=== PATIENT | male | born 1990 | race Caucasian/White ===

== ENCOUNTER 2017-01-20 06:43 | Inpatient (IN) | payer MEDICAID ==
[~2017-01-20] VITALS: Ht 172.7 cm; Wt 71.7 kg
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
[2017-01-20] MEDS ORDERED: ONDANSETRON HCL 4 MG TABLET PO ONE (07:00)
[2017-01-20] MEDS ORDERED: IV NORMAL SALINE 1000 ML BAG IV ONE (07:00)
[2017-01-20] MEDS ORDERED: TDAP DIPH,PERTUSS,TET VAC/PF 0.5 ML DISP.SYRIN IM ONE ×2 (07:00→07:30)
[2017-01-20] MEDS ORDERED: HYDROMORPHONE 1 MG/1 ML DISP.SYRIN IM ONE (07:00)
[2017-01-20] MEDS ORDERED: CEFAZOLIN 1 G in IV DEXTROSE 5% 50 ML IV ONE (07:00)
[2017-01-20] MEDS ORDERED: ONDANSETRON IV *ER 4 MG/2 ML VIAL IV ONE (07:15)
[2017-01-20] MEDS ORDERED: HYDROMORPHONE 1 MG/1 ML DISP.SYRIN IV ONE (07:15)
[2017-01-20 07:21] LABS: BASOPHILS % (AUTO) 0.3 % (0.0-2.0); EOSINOPHILS # (AUTO) 0.2 K/uL (0.0-0.7); EOSINOPHILS % (AUTO) 2.8 % (0.0-7.0); HEMATOCRIT 48.3 % (40-50); HEMOGLOBIN 16.5 G/DL (14.0-18.0); LYMPHOCYTES # (AUTO) 2.4 K/UL (0.8-4.8); LYMPHOCYTES % (AUTO) 29.4 % (20.5-51.5); MEAN CORPUSCULAR HEMOGLOBIN 29.7 UUG (27.0-31.0); MEAN CORPUSCULAR HGB CONC 34 g/dL (32.0-37.0); MONOCYTES # (AUTO) 0.6 K/UL (0.1-1.30); MONOCYTES % (AUTO) 6.9 % (0.0-11.0); NEUTROPHILS # (AUTO) 4.9 K/UL (1.8-8.9); NEUTROPHILS % (AUTO) 60.6 % (38.5-71.5); PLATELET COUNT (AUTO) 245 K/UL (150-450); RED BLOOD CELL COUNT(AUTO) 5.54 MIL/UL (4.7-6.1); WHITE BLOOD COUNT (AUTO) 8.1 K/UL (4.0-11.2)
[2017-01-20] MEDS ORDERED: HYDROMORPHONE 2 MG/1 ML DISP.SYRIN ONE (07:24)
[2017-01-20] MEDS ORDERED: ONDANSETRON 4 MG/2 ML VIAL ONE (07:24)
[2017-01-20] MEDS ORDERED: CEFAZOLIN 1 G VIAL ONE (07:31)
--- NOTE | 2017-01-20 08:14 | NUR ---
lapd at bedside talking to pt
[2017-01-20 08:17] LABS: CREATININE 1.2 mg/dL (0.6-1.3); POTASSIUM 3.9 mmol/L (3.5-5.1)
[2017-01-20 08:22] LABS: BILIRUBIN,DIRECT 0.1 mg/dL (0.0-0.2); BILIRUBIN,TOTAL 0.5 mg/dL (0.1-1.0)
[2017-01-20 08:23] LABS: TOTAL PROTEIN, SERUM 7.5 g/dL (6.4-8.2)
--- NOTE | 2017-01-20 09:49 | NUR ---
chelsey bell for dr. bhardwaj for consult
--- NOTE | 2017-01-20 10:10 | NUR ---
dr. casas talked to dr. bhardwaj. called dr. toledo per request
--- NOTE | 2017-01-20 10:24 | NUR ---
dr. casas talking to dr. alexander
--- NOTE | 2017-01-20 10:28 | NUR ---
dr. casas talking to dr. toledo
--- NOTE | 2017-01-20 10:40 | NUR ---
camacho foley talking again to dr. radha greenfield
--- NOTE | 2017-01-20 10:46 | NUR ---
called dr. whitney. camacho foley talking to dr. whitney
--- NOTE | 2017-01-20 11:00 | NUR ---
received report from [facility] nurse, pt is laying in bed comfortably. No s/s of respiratory distress noted, all safety needs are met. iv intact/patent, will continue to monitor.
--- NOTE | 2017-01-20 11:07 | NUR ---
pt transfered to floor in stable condition
[2017-01-20 12:05] VITALS: BP 123/83
[2017-01-20] MEDS ORDERED: HYDROCODONE/APAP 5-325MG TABLET PO PRN (12:30)
[2017-01-20] MEDS ORDERED: ZOLPIDEM 5 MG TABLET PO PRN (12:30)
[2017-01-20] MEDS ORDERED: ACETAMINOPHEN 325 MG TABLET PO PRN (12:30)
[2017-01-20] MEDS ORDERED: Z GUARD REMEDY PASTE 57 GM TUBE TOP PRN (12:30)
[2017-01-20] MEDS ORDERED: VANCOMYCIN IV 1 G in PREMIXED 0 EACH IV SCH (12:30)
[2017-01-20] MEDS ORDERED: MAGNESIUM HYDROXIDE 30 ML LIQUID UDC PO PRN (12:30)
[2017-01-20] MEDS ORDERED: ONDANSETRON 4 MG/2 ML VIAL IV PRN (12:30)
--- NOTE | 2017-01-20 12:35 | NUR ---
dr. casas talking to dr. strange
--- NOTE | 2017-01-20 12:45 | NUR ---
[facility] to maximino at [facility].
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
[2017-01-20 12:58] LABS: AMYLASE 43 U/L (25-115); LIPASE 163 U/L (73-393)
[2017-01-20] MEDS: IV D5 1/2 NS 1000 ML 1,000 ML IV PRN (13:00)
--- NOTE | 2017-01-20 13:01 | NUR ---
called [facility], no bed available per sumit
[2017-01-20] MEDS: MORPHINE SULFATE 2 MG/1 ML DISP.SYRIN IV PRN ×3 (13:10→22:11)
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
[2017-01-20 14:30] VITALS: BP 120/78
[2017-01-20] MEDS: CEFAZOLIN 1 G in PREMIXED 1 EACH IV SCH ×2 (14:31→22:11)
[2017-01-20] MEDS: VANCOMYCIN IV 1 G in PREMIXED 0 EACH IV SCH (15:19)
[2017-01-20 17:31] LABS: *BILIRUBIN,URIN NEGATIVE (NEGATIVE); *BLOOD, URINE NEGATIVE (NEGATIVE); *COLOR,URINE YELLOW (YELLOW); *KETONES,URINE NEGATIVE (NEGATIVE); *PROTEIN,URINE NEGATIVE (NEGATIVE); LEUKOCYTE ESTERASE ,URINE NEGATIVE (NEGATIVE); NITRITE, URINE NEGATIVE (NEGATIVE); PH,URINE 7.5 (5.0-8.0); UGLUCOSE NEGATIVE (NEGATIVE)
[2017-01-20 17:49] LABS: *CLARITY,URINE CLEAR (CLEAR)
[2017-01-20 17:52] LABS: RBC,URINE NONE SEEN /HPF (0-3); WBC,URINE 0-3 /HPF (0-3)
[2017-01-20 17:53] LABS: BACTERIA,URINE NONE SEEN /HPF (NONE SEEN); SQUAMOUS EPITHELIAL CELL,UR NONE SEEN /HPF (NONE SEEN)
--- NOTE | 2017-01-20 17:53 | NUR ---
PER DR. MOCK OK TO HAVE REFGULAR DIET, NPO AFTER MIDNIGHT. "SURGERY WILL BE TOMORROW".
--- NOTE | 2017-01-20 19:26 | NUR ---
pt is laying in bed comfortably. no s/s of respiratory distress noted. all safety needs are met. no pain noted. iv intact/patent. wound care is done, no bleeding noted.
[2017-01-20 20:00] VITALS: BP 113/78
[2017-01-21 00:25] VITALS: BP 110/79
--- NOTE | 2017-01-21 00:52 | NUR ---
Received patient laying in bed. Complaint of pain 6/10 on left elbow dressing intact no active bleeding noted, given iv morphine prn as ordered. Maintained on ivf infusion as ordered. Planned for surgery today, instructed NPO after midnight. On telemetry monitoring SR, HR high 50's otherwise vital signs are stable. Call light within reach.
[2017-01-21] MEDS: VANCOMYCIN IV 1 G in PREMIXED 0 EACH IV SCH ×3 (01:06→21:05)
[2017-01-21 04:00] VITALS: BP 108/65
[2017-01-21] MEDS: CEFAZOLIN 1 G in PREMIXED 1 EACH IV SCH ×3 (05:47→22:32)
[2017-01-21] MEDS: IV D5 1/2 NS 1000 ML 1,000 ML IV PRN (05:48)
--- NOTE | 2017-01-21 05:58 | NUR ---
PATIENT SLEPT GOOD THROUGH THE NIGHT. NOTED MINIMAL BLEEDING ON LEFT ELBOW, REINFORCED DRESSING. OTHERWISE PATIENT COMPLAINT OF 4-5 PAIN. VSS. MAINTAINED ON NPO. CALL LIGHT WITHIN REACH. ALL NEEDS ATTENDED.
[2017-01-21] MEDS: PANTOPRAZOLE SODIUM 40 MG TABLET.DR PO SCH (06:00)
[2017-01-21 06:35] LABS: BASOPHILS % (AUTO) 0.2 % (0.0-2.0); EOSINOPHILS # (AUTO) 0.2 K/uL (0.0-0.7); EOSINOPHILS % (AUTO) 1.8 % (0.0-7.0); HEMOGLOBIN 16.8 G/DL (14.0-18.0); LYMPHOCYTES # (AUTO) 1.4 K/UL (0.8-4.8); LYMPHOCYTES % (AUTO) 12.7 % (20.5-51.5); MEAN CORPUSCULAR HEMOGLOBIN 30.2 UUG (27.0-31.0); MEAN CORPUSCULAR HGB CONC 35 g/dL (32.0-37.0); MEAN CORPUSCULAR VOLUME 86.4 FL (82.0-92.0); MONOCYTES # (AUTO) 0.9 K/UL (0.1-1.30); MONOCYTES % (AUTO) 7.9 % (0.0-11.0); NEUTROPHILS # (AUTO) 8.7 K/UL (1.8-8.9); NEUTROPHILS % (AUTO) 77.4 % (38.5-71.5); PLATELET COUNT (AUTO) 235 K/UL (150-450); RED BLOOD CELL COUNT(AUTO) 5.56 MIL/UL (4.7-6.1); WHITE BLOOD COUNT (AUTO) 11.2 K/UL (4.0-11.2)
[2017-01-21 06:48] LABS: BILIRUBIN,TOTAL 1.1 mg/dL (0.2-1.0); CREATININE 1.1 mg/dL (0.6-1.3); MAGNESIUM 1.7 mg/dL (1.8-2.4); PHOSPHOROUS 3.9 mg/dL (2.5-4.9); POTASSIUM 3.8 mmol/L (3.5-5.1); TOTAL PROTEIN, SERUM 7.1 g/dL (6.4-8.2)
[2017-01-21 07:07] LABS: THYROID STIMULATING HORMONE 11.896 mIU/mL (0.358-3.740)
--- NOTE | 2017-01-21 07:15 | NUR ---
DENIES PAIN AND DISCOMFORT CONTINUE CURRENT TX PLAN WITH ANTIBIOTIC THERAPY
--- NOTE | 2017-01-21 09:00 | NUR ---
CONTINUE WITH IV ANTIBIOTCS ORDERED, NOTED SLIGHT SEROUS DRAINAGE LEFT ELBOW. PATIENT AFEBRILE
[2017-01-21] MEDS ORDERED: MAGNESIUM OXIDE 400 MG TABLET PO ONE (10:45)
[2017-01-21 11:21] VITALS: BP 108/81
--- NOTE | 2017-01-21 14:00 | NUR ---
SPOKE WITH DR MOCK PLANFOR IRRIGATION AND CLEANSING LEFT ELBOW IN AM
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
[2017-01-21 15:45] VITALS: BP 125/68
--- NOTE | 2017-01-21 18:13 | NUR ---
CONTINUE CURRENT TX PLAN, NPO POST MN ADVISED
[2017-01-21 20:00] VITALS: BP 105/72
[2017-01-22] MEDS: IV D5 1/2 NS 1000 ML 1,000 ML IV PRN (02:30)
--- NOTE | 2017-01-22 04:24 | NUR ---
NPO STATUS MAINTAINED. PATIENT FOR OR THIS AM. PRE-OP CHECKLIST DONE. DENIES ANY PAIN NOR ANY DISCOMFORT. VOIDING WELL. LEFT ARM DRESSING INTACT. IVF'S INFUSING WELL.
[2017-01-22 05:06] VITALS: BP 115/68
[2017-01-22] MEDS: CEFAZOLIN 1 G in PREMIXED 1 EACH IV SCH ×3 (05:26→21:38)
[2017-01-22] MEDS: PANTOPRAZOLE SODIUM 40 MG TABLET.DR PO SCH (06:22)
[2017-01-22 06:45] LABS: BASOPHILS % (AUTO) 0.2 % (0.0-2.0); EOSINOPHILS # (AUTO) 0.2 K/uL (0.0-0.7); EOSINOPHILS % (AUTO) 2.6 % (0.0-7.0); HEMATOCRIT 48.5 % (40-50); HEMOGLOBIN 16.2 G/DL (14.0-18.0); LYMPHOCYTES # (AUTO) 1.3 K/UL (0.8-4.8); LYMPHOCYTES % (AUTO) 14.9 % (20.5-51.5); MEAN CORPUSCULAR HEMOGLOBIN 29.4 UUG (27.0-31.0); MEAN CORPUSCULAR HGB CONC 34 g/dL (32.0-37.0); MEAN CORPUSCULAR VOLUME 87.7 FL (82.0-92.0); MONOCYTES # (AUTO) 0.8 K/UL (0.1-1.30); MONOCYTES % (AUTO) 9.7 % (0.0-11.0); NEUTROPHILS # (AUTO) 6.2 K/UL (1.8-8.9); NEUTROPHILS % (AUTO) 72.6 % (38.5-71.5); PLATELET COUNT (AUTO) 249 K/UL (150-450); RED BLOOD CELL COUNT(AUTO) 5.52 MIL/UL (4.7-6.1); WHITE BLOOD COUNT (AUTO) 8.5 K/UL (4.0-11.2)
[2017-01-22 06:58] LABS: MAGNESIUM 1.9 mg/dL (1.8-2.4); PHOSPHOROUS 3.8 mg/dL (2.5-4.9); POTASSIUM 3.7 mmol/L (3.5-5.1)
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
[2017-01-22] MEDS: VANCOMYCIN IV 1,250 MG in IV DEXTROSE 5% 500 ML IV SCH ×3 (09:41→21:38)
[2017-01-22] MEDS ORDERED: POLYMYXIN B SULFATE 500,000 UNITS, BACITRACIN 50,000 UNITS, NORMAL SALINE 20 ML MC ONE ×3 (11:30)
[2017-01-22 11:36] VITALS: BP 114/67
[2017-01-22] MEDS ORDERED: FENTANYL CITRATE 100 MCG/2 ML AMPUL ONE (12:30)
[2017-01-22] MEDS ORDERED: MIDAZOLAM HCL 2 MG/2 ML VIAL ONE (12:31)
[2017-01-22] MEDS ORDERED: HYDROMORPHONE 2 MG/1 ML DISP.SYRIN ONE (13:35)
--- NOTE | 2017-01-22 14:00 | NUR ---
PT REPORT RECEIVED FROM LEORA HEATON RN. V/S STABLE. PROCEDURE WELL TOLERATED. PT ASSESSED TO BE IN NO ACUTE DISTRESS OR PAIN AT THIS TIME. WILL CONTINUE TO MONITOR FOR S/S OF INFECTION.
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
[2017-01-22 16:00] VITALS: BP 115/66
--- NOTE | 2017-01-22 19:45 | NUR ---
Received pt in bed, awake alert and oriented. Friend at bedside. Verbally responsive and able to make needs known. No acute distress noted at this time. Denies pain or discomfort. Right AC 20g noted running D5 1/2 NS at 75 cc/hr. Denies any SOB or pain at IV site. All fall precautions and safety measures maintained. Call light within reach. Will continue to monitor.
[2017-01-22 20:00] VITALS: BP 93/59
[2017-01-22] MEDS ORDERED: PROPOFOL 200 MG/20 ML BOTTLE IV ONE (20:29)
[2017-01-22] MEDS ORDERED: ONDANSETRON 4 MG/2 ML VIAL IV ONE (20:29)
[2017-01-22] MEDS ORDERED: LIDOCAINE HCL 1% 20 ML VIAL MC ONE (20:29)
[2017-01-22] MEDS ORDERED: VANCOMYCIN 1000 MG VIAL MC ONE (20:29)
[2017-01-22] MEDS ORDERED: SEVOFLURANE 250 ML BOTTLE IH ONE (20:29)
[2017-01-22] MEDS ORDERED: IV D5W-0.45% NS 1000 ML BAG IV ONE (20:29)
[2017-01-23] MEDS: IV D5 1/2 NS 1000 ML 1,000 ML IV PRN (03:16)
[2017-01-23] MEDS: VANCOMYCIN IV 1,250 MG in IV DEXTROSE 5% 500 ML IV SCH (04:46)
[2017-01-23 05:17] VITALS: BP 123/82
[2017-01-23] MEDS: CEFAZOLIN 1 G in PREMIXED 1 EACH IV SCH (06:10)
[2017-01-23] MEDS: PANTOPRAZOLE SODIUM 40 MG TABLET.DR PO SCH ×2 (06:29→09:00)
--- NOTE | 2017-01-23 07:15 | NUR ---
Pt slept throughout the evening. Denies pain or discomfort. No acute distress noted. IV patent and intact with no s/s adverse complications. All safety measures and fall precautions maintained. Call light within reach. Pharmacy made aware of vanco trough and vancomycin. Endorsed to AM nurse.
--- NOTE | 2017-01-23 07:25 | NUR ---
RECEIVED REPORT FROM MATERIALS ANALYST NURSE, PT RESTING IN BED, NO C/O PAIN NO DISTRESS, CALL LIGHT IN REACH, WILL CONTINUE TO MONITOR.
--- NOTE | 2017-01-23 10:00 | NUR ---
WD care done on pt per protocol, no s/s of infection, no c/o pain, call light in reach.
[2017-01-23 11:59] VITALS: BP 113/80
[2017-01-23 15:53] VITALS: BP_SYST 122; BP_SYST 159; BP_DIAS 56; BP_DIAS 91
[2017-01-23] MEDS ORDERED: VANCOMYCIN IV 1 G in PREMIXED 0 EACH IV SCH (17:00)
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
[2017-01-23] MEDS ORDERED: ACET325T53 PO (18:03)
[2017-01-23] MEDS ORDERED: SULF1TAB48 PO (18:03)
[2017-01-23] MEDS ORDERED: HYDR-3326 PO (18:03)
[2017-01-23 20:00] VITALS: BP 115/76
--- NOTE | 2017-01-23 20:30 | NUR ---
PT PICKED UP BY BROTHER EDSON. BELONGING LIST ACCOUNTED/ACKNOWLEDGED AND SIGNED FOR. IV ACCESS REMOVED BY DAY SHIFT RN. ID BAND REMOVED. PATIENT IS ALERT, IN NO ACUTE DISTRESS, AMBULATORY.
== END 2017-01-23 20:30 | disposition home or self-care (01) | DRG 951 ==
LOC: ER 06:43 → TELE 10:57 → MED 01-21 11:42
PROVIDERS: ADMIT Internal Medicine; ATTEND Internal Medicine
PROC: 0JBH0ZZ Excision of Left Lower Arm Subcutaneous Tissue and Fascia, Open Approach (ICD-10-PCS; principal; 2017-01-22 12:25)
PROC: 0XQCXZZ Repair Left Elbow Region, External Approach (ICD-10-PCS; principal; 2017-01-22 12:25)
DX: S51.022A Laceration with foreign body of left elbow, initial encounter (principal); T79.7XXA Traumatic subcutaneous emphysema, initial encounter; E83.42 Hypomagnesemia; V43.52XA Car driver injured in collision with other type car in traffic accident, initial encounter; Y92.410 Unspecified street and highway as the place of occurrence of the external cause; E03.9 Hypothyroidism, unspecified; S50.312A Abrasion of left elbow, initial encounter
CPT/HCPCS: 36415; 70030-TC; 70450; 71010; 72125; 73080; 82746; 83690; 83735; 84100; 84443; 85025; 85651; 85730; 86850; 86900; 86901; 87040; 87086; 90715; 93005; 93307; A4217; A4649; A4663; J0690; J1170; J2250; J2270; J2405; J3010; J3370; J3490; J7030; J7060